=== PATIENT | male | born 1990 | race Two or more races ===

== ENCOUNTER 2022-09-03 17:42 | Emergency (ER) | payer SELFPAY ==
[~2022-09-03] VITALS: Ht 175.3 cm; Wt 68.0 kg
[2022-09-03 17:50] VITALS: BP 115/72
[2022-09-03] MEDS ORDERED: ONDANSETRON HCL 4MG/2ML INJ IV STA (17:52)
[2022-09-03] MEDS ORDERED: SODIUM CHLORIDE 0.9% 1,000 ML IV ONE (18:00)
[2022-09-03] MEDS ORDERED: PANTOPRAZOLE SODIUM 40 MG/VIAL IV ONE (18:00)
[2022-09-03 18:26] LABS: BASOPHILS % 0.7 % (0.0-2.0); EOSINOPHILS % 0.7 % (0.0-5.0); HEMATOCRIT. 35.6 % (42.0-52.0); HEMOGLOBIN. 11.8 g/dL (14.0-18.0); LYMPHOCYTES % 24.6 % (20.0-50.0); MEAN CORPUSCULAR HEMOGLOBIN 27.5 pg (28.0-32.0); MEAN PLATELET VOLUME 7.9 fl (7.4-10.4); MONOCYTES % 7.5 % (2.0-8.0); NEUTROPHILS % 66.5 % (40.0-76.0); PLATELET 316 x1000/uL (130-400); RED BLOOD CELL COUNT 4.29 mill/uL (4.7-6.1); RED CELL DISTRIBUTION WIDTH 17.5 % (11.6-14.6)
[2022-09-03 18:34] LABS: CHLORIDE 104 mEq/L (98-107)
[2022-09-03 18:42] LABS: PROTHROMBIN TIME 10.7 sec (9.6-11.0)
[2022-09-03 18:43] LABS: ETHANOL BLOOD < 10 mg/dL
== END 2022-09-03 19:02 | disposition left against medical advice (07) ==
LOC: ER 17:42
DX: R11.2 Nausea with vomiting, unspecified (principal); R10.13 Epigastric pain; Z87.11 Personal history of peptic ulcer disease
CPT/HCPCS: 36415; 71045; 80053; 80320; 83690; 85025; 85610; 86850; 86900; 86901; 99284; J7030; G0480